=== PATIENT | female | born 1995 | race Caucasian/White ===

== ENCOUNTER 2016-06-17 05:57 | Day surgery (SDC) | payer OTHER ==
[~2016-06-17 05:57] MED LIST: CIPROFLOXACIN 400 MG/D5W RTU 400 MG/200 ML RTUPB IV PRN; LACTATED RINGERS 1000 ML IV PRN; LIDOCAINE 0.5% INJ-PF (5 MG/ML) 50 ML SDV SUBCUT PRN; MORPHINE SULFATE 10 MG/ML INJ IV PRN; ONDANSETRON HCL INJ/PF 4 MG/2 ML SDV IV PRN
[2016-06-17] MEDS ORDERED: HYDROMORPHONE HCL INJ/PF 2 MG/ML AMPULE ONE (06:54)
[2016-06-17] MEDS ORDERED: FENTANYL CITRATE INJ/PF 100 MCG/2 ML AMPUL ONE (06:54)
[2016-06-17] MEDS ORDERED: MIDAZOLAM 2 MG/2 ML INJ ONE (06:55)
[2016-06-17] MEDS ORDERED: PROPOFOL INJ 200 MG/20 ML VIAL IV ONE (06:55)
[2016-06-17] MEDS ORDERED: PROMETHAZINE HCL INJ 25 MG/1 ML VIAL IV PRN ×2 (12:24)
[2016-06-17] MEDS ORDERED: DIPHENHYDRAMINE HCL 50 MG/ML VIAL IV PRN (12:24)
[2016-06-17] MEDS ORDERED: MORPHINE SULFATE 10 MG/ML INJ IV PRN ×2 (12:24→12:59)
[2016-06-17] MEDS ORDERED: FENTANYL CITRATE INJ/PF 100 MCG/2 ML AMPUL IV PRN ×3 (12:24)
[2016-06-17] MEDS ORDERED: MEPERIDINE HCL/PF INJ 25 MG/1 ML DISP.SYRIN IV PRN (12:24)
--- NOTE | 2016-06-17 12:24 | Brief Operative Note ---
BRIEF OPERATIVE REPORT DATE OF SURGERY: 06/17/16 TIME OF SURGERY: 11:30 PREOPERATIVE DIAGNOSIS: left renal calculi POSTOPERATIVE DIAGNOSIS: left renal calculi SURGEON: PEPITO EMANUEL FINDINGS: multiple renal calculi basketed and removed COMPLICATIONS: none ESTIMATED BLOOD LOSS: 1 TISSUE REMOVED OR ALTERED: left renal calculi for stone analysis TECHNICAL PROCEDURE: Left ureteropyeloscopy with basket stone extraction. cystoscopy with placement of left 6Fr x 24cm JJ ureteral stent. left retrograde pyelography/fluoroscopy with interpretation. Fluoro time < 1h
[2016-06-17] MEDS: FENTANYL CITRATE INJ/PF 100 MCG/2 ML AMPUL ONE ×2 (12:33→12:45)
[2016-06-17] MEDS ORDERED: DIPHENHYDRAMINE HCL 50 MG/ML VIAL ONE (12:38)
[2016-06-17] MEDS ORDERED: OXYCODONE-ACETAMINOPHEN 5-325 MG TABLET PO PRN ×2 (12:59)
[2016-06-17] MEDS ORDERED: ONDANSETRON HCL INJ/PF 4 MG/2 ML SDV IV PRN (13:00)
--- NOTE | 2016-06-17 14:27 | OPERATIVE REPORT E ---
Operative Report NAME: RICHIE PEDRO : 1995 AGE: 21Y DATE OF SURGERY: ROOM: PREOPERATIVE DIAGNOSIS: Left renal calculi. POSTOPERATIVE DIAGNOSIS: Left renal calculi. OPERATION: 1. Left ureteropyeloscopy with basket stone extraction. 2. Cystoscopy with placement of left 6-Serbian x 24-cm double J ureteral stent. 3. Left retrograde pyelography with interpretation. Fluoroscopy with interpretation. Total fluoroscopy time was 1 hour. SURGEON: Jose Prasad M.D. ANESTHESIA: General endotracheal. ESTIMATED BLOOD LOSS: 1. IV FLUIDS: 400 mL of Ringer's lactate. DRAINS, TUBES AND LINES: A left 6-Serbian x 24-cm double J ureteral stent. COMPLICATIONS: None. CONDITION: Stable. SPECIMENS: Left renal calculi for stone analysis. INDICATIONS FOR PROCEDURE: The patient is a 21-year-old [employer] who has a history of bilateral renal calculi with flank pain and presents for the above procedure. PROCEDURE: The patient was identified in the preoperative holding area. The surgery with all of the attendant risks and benefits were again described in detail to the patient. She confirmed her consent to proceed and was marked on the left side. She was given ciprofloxacin 400 mg and was brought back to the operating room. Once in the operating room, she had general endotracheal anesthesia provided and she was repositioned in the dorsal low lithotomy position. She was then prepped and draped in the usual sterile fashion. A surgical time-out was performed, all were in agreement, we then started the case. We started by placing a 21-Serbian rigid cystoscope in transurethrally. The urethra was without any abnormality. The bladder was surveyed. There were no lesions concerning for malignancy and both ureteral orifices were in their normal and orthotopic location. The urethra was normal. We cannulated the left ureteral orifice with a 0.038 Glidewire, placing this up into the renal pelvis under fluoroscopic guidance. We then gently dilated the distal ureter with the inner cannula of the ureteral access sheath. We removed this and then placed a 2nd wire, this being a 0.038 Glidewire and we secured it to the drape to be used as a safety wire. We then assembled both inner and outer cannula of the access sheath and passed this under fluoroscopic vision up into the proximal portion of the ureter. The flexible ureteroscope was then assembled and we performed kilpatrick-pyeloscopy. There were multiple non-obstructing renal calculi ranging in size from 2-4 mm. These were grasped sequentially starting in the upper pole down to the lower pole, removing each of them and bringing them out, placing them in a container labeled "left renal calculi for stone analysis." Once we had visually confirmed that we had extracted all of the calculi, we performed a retrograde pyelogram. This showed normal calices and then we confirmed with using the fluoroscopy and visually that we had looked in each of the calices. Once this was done, we removed the access sheath under direct vision and the remainder of the ureter was entirely clear of any calculi. We then backfed the wire onto a cystoscope and placed a 6-Serbian x 24-cm double J ureteral stent under direct visual and fluoroscopic guidance with a good positioning of the proximal end of the stent in the kidney and distal coil in the bladder. We then decompressed the patient's bladder with a cystoscope sheath and awakened her from anesthesia. She was transferred to the PACU in stable condition where she will be recovered. The plan is for discharge per PACU protocol and removal of the stent in 1-2 weeks. DICTATING PHYSICIAN: Jose Prasad MD [id number] PHY#: [id number] ID: [id number] JOB#: [id number] ACCT: [id number] cc:Jose Prasad M.D. >
[2016-06-17] MEDS ORDERED: LIDOCAINE 2% INJ-PF (20 MG/ML) 10 ML AMPUL ONE (14:36)
[2016-06-17] MEDS ORDERED: SUCCINYLCHOLINE CHLORIDE INJ 200 MG/10 ML VIAL ONE (14:36)
[2016-06-17] MEDS ORDERED: ONDANSETRON HCL INJ/PF 4 MG/2 ML SDV ONE (14:36)
[2016-06-17] MEDS ORDERED: DEXAMETHASONE SOD PHOSPHATE INJ 4 MG/1 ML VIAL ONE (14:36)
[2016-06-17] MEDS ORDERED: PHENYLEPHRINE HCL INJ/PF 10 MG/1 ML SDV ONE (14:36)
[2016-06-17 17:53] VITALS: BP 112/69
== END 2016-06-17 14:25 | disposition home or self-care (01) ==
LOC: OROUT 05:57
PROVIDERS: ATTEND Urology
PROC: 0T778DZ Dilation of Left Ureter with Intraluminal Device, Via Natural or Artificial Opening Endoscopic (ICD-10-PCS; 2016-06-17)
PROC: 0TF48ZZ Fragmentation in Left Kidney Pelvis, Via Natural or Artificial Opening Endoscopic (ICD-10-PCS; principal; 2016-06-17 08:00)
DX: N20.0 Calculus of kidney (principal); F17.210 Nicotine dependence, cigarettes, uncomplicated; J45.909 Unspecified asthma, uncomplicated; Z79.51 Long term (current) use of inhaled steroids
CPT/HCPCS: 82370; 81025; 74420; 52356; C1758; C2617; Q9967; J2250; J1100; J1200; J3010; J1170; J2370; J0330; J2405; J2704; J0744; J3490; 910